=== PATIENT | female | born 1995 | race Caucasian/White ===

== ENCOUNTER 2017-12-13 13:58 | Outpatient (CLI) ==
[2016-02-25 11:56] VITALS: BMI 23.1
== END 2017-12-13 13:59 | disposition home or self-care (01) ==
LOC: FCC-LAB 13:58
PROVIDERS: ATTEND Family Medicine
DX: N92.6 Irregular menstruation, unspecified (principal); Z30.09 Encounter for other general counseling and advice on contraception
CPT/HCPCS: 36415; 84702

== ENCOUNTER 2018-01-29 18:39 | Emergency (ER) | payer OTHER ==
[2018-01-29 18:46] VITALS: BP 158/102; TEMP 99.8; BMI 28.7
[2018-01-29] MEDS ORDERED: NORCO 5-325 PO STA (19:26)
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
--- NOTE | 2018-01-29 20:18 | DI ---
Exam: Left tibia and fibula two-view HISTORY: Inury and pain Findings / impression: No bony abnormality is seen. No surrounding soft tissue abnormality. Negati ve exam.
== END 2018-01-29 20:51 | disposition home or self-care (01) ==
LOC: ED 18:39
DX: S80.11XA Contusion of right lower leg, initial encounter (principal); S80.12XA Contusion of left lower leg, initial encounter; S59.912A Unspecified injury of left forearm, initial encounter; W22.10XA Striking against or struck by unspecified automobile airbag, initial encounter; V89.2XXA Person injured in unspecified motor-vehicle accident, traffic, initial encounter
CPT/HCPCS: 81025; 99283

== ENCOUNTER 2018-02-11 18:15 | Emergency (ER) ==
[2018-02-11 18:24] VITALS: BP 110/72; TEMP 99.2; BMI 28.5
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
--- NOTE | 2018-02-11 19:35 | CT ---
EXAM: CT of the head without contrast History: Blurred vision, visual changes. Comparison: Head CT 04/04/2016 Technique: Multiplanar CT images through the head were obtained without the administration of IV con trast Findings: The visualized paranasal sinuses and mastoid air cells are clear in general. No acute stephanie varial abnormalities. Intracranially the ventricular and cisternal spaces are normal in size, shape and configuration for a patient of this age. No dominant mass or midline shift. No hydrocephalous. No acute intracranial hemorrhage or abnormal extraaxial fluid collections. Impression: No acute intracranial process.
== END 2018-02-11 19:55 | disposition home or self-care (01) ==
LOC: ED 18:15
DX: H53.8 Other visual disturbances (principal); R51 Headache
CPT/HCPCS: 36415; 80053; 83036; 84703; 85025; 99283

== ENCOUNTER 2018-03-29 12:20 | Outpatient (CLI) | END 2018-03-29 12:21 | disposition home or self-care (01) | LOC: FCC-LAB 12:20 | PROVIDERS: ATTEND Family Medicine | DX: R23.8 Other skin changes (principal) | CPT/HCPCS: 36415; 80053; 85025; 85610 ==

== ENCOUNTER 2018-04-10 21:07 | Outpatient (CLI) | END 2018-04-10 21:08 | disposition home or self-care (01) | LOC: LAB 21:07 | PROVIDERS: ATTEND Family Medicine | DX: R30.0 Dysuria (principal) | CPT/HCPCS: 87086 ==

== ENCOUNTER 2019-02-24 15:25 | Outpatient (CLI) | END 2019-02-24 15:26 | disposition home or self-care (01) | LOC: RHC-LAB 15:25 → FCC-LAB 15:26 | PROVIDERS: ATTEND Family Medicine | DX: Z20.818 Contact with and (suspected) exposure to other bacterial communicable diseases (principal) | CPT/HCPCS: 87651 ==